=== PATIENT | female | born 1960 | race African-American/Black ===

== ENCOUNTER 2018-05-06 22:06 | Emergency (ER) | payer BC ==
[~2018-05-06] VITALS: Ht 175.3 cm; Wt 97.5 kg
--- NOTE | 2018-05-06 22:06 | NUR ---
PT [facility]. TAKEN TO BED 10
[2018-05-06 22:11] VITALS: BP 154/61
--- NOTE | 2018-05-06 22:15 | NUR ---
PT BIBA AND RECEIVED TO BED 10 [facility]IA [facility]. ASSUMED CARE OF PT AT THIS TIME. C/O PALPITATIONS X 30 MINUTES AGO. PMH SVT. PT NSR ON ARRIVAL. PT DENIES ANY CP/SOB. PT IS AAOX4; LUNGS CLEAR BL; HR EVEN AND REGULAR; PATIENT STATES PAIN OF 0/10; VSS; PATIENT POSITIONED FOR COMFORT; HOB ELEVATED; BEDRAILS UP X2; BED DOWN. ER MD MADE AWARE OF PT STATUS. WILL CONTINUE TO MONITOR.
--- NOTE | 2018-05-06 22:38 | NUR ---
Dr. Marie evaluating patient at bedside.
--- NOTE | 2018-05-06 23:02 | NUR ---
X-Ray at bedside.
[2018-05-06 23:17] LABS: BASOPHILS # (AUTO) 0.1 K/uL (0.00-0.22); BASOPHILS % (AUTO) 0.9 % (0.0-2.0); EOSINOPHILS # (AUTO) 0.3 K/uL (0-0.4); EOSINOPHILS % (AUTO) 4.5 % (0.0-4.0); HEMATOCRIT 42.2 % (36-48); HEMOGLOBIN 13.7 g/dL (12.0-16.0); LYMPHOCYTES # (AUTO) 1.8 K/uL (2.5-16.5); LYMPHOCYTES % (AUTO) 31.3 % (20.5-51.1); MEAN CORPUSCULAR HEMOGLOBIN 29 pg (27-31); MEAN CORPUSCULAR HGB CONC 33 g/dL (33-37); MEAN CORPUSCULAR VOLUME 88.8 fL (80-94); MONOCYTES # (AUTO) 0.5 K/uL (0.8-1.0); MONOCYTES % (AUTO) 8.8 % (1.7-9.3); NEUTROPHILS # (AUTO) 3.2 K/uL (1.8-7.7); NEUTROPHILS % (AUTO) 54.5 % (42.2-75.2); PLATELET COUNT (AUTO) 242 K/uL (140-450); RED BLOOD CELL COUNT(AUTO) 4.76 MIL/uL (4.20-5.40); RED CELL DISTRIBUTION WIDTH 15.4 % (11.6-13.7); WHITE BLOOD COUNT (AUTO) 5.9 K/uL (4.8-10.8)
[2018-05-06 23:33] LABS: ANION GAP 6.3 (8-16); CARBON DIOXIDE 31.5 mmol/L (21-32); CREATININE 1.2 mg/dL (0.6-1.3); POTASSIUM 3.8 mmol/L (3.5-5.1)
[2018-05-06 23:40] LABS: ALBUMIN 3.8 g/dL (3.4-5.0); MAGNESIUM 2.1 mg/dL (1.8-2.4); PHOSPHORUS 4.4 mg/dL (2.5-4.9); TOTAL BILIRUBIN 0.2 mg/dL (0.0-1.0)
[2018-05-07 00:10] VITALS: BP 152/65
--- NOTE | 2018-05-07 00:10 | NUR ---
Patient discharged with v/s stable. Written and verbal after care instructions given and explained. Patient alert, oriented and verbalized understanding of instructions. Ambulatory with steady gait. All questions addressed prior to discharge. ID band removed. Patient advised to follow up with PMD. Rx of Atenolo, Cardizem given. Patient educated on indication of medication including possible reaction and side effects. Opportunity to ask questions provided and answered.
== END 2018-05-07 00:10 | disposition home or self-care (01) ==
LOC: MED 22:06
DX: R00.2 Palpitations (principal); F43.20 Adjustment disorder, unspecified
CPT/HCPCS: 36415; 71045; 80053; 82550; 82553; 83735; 84100; 84484; 85025; 87804; 93005; 99284